=== PATIENT | male | born 1975 | race Caucasian/White ===

== ENCOUNTER 2021-02-17 08:45 | Outpatient (CLI) | payer OTHER, SELFPAY ==
--- NOTE | ~2021-02-17 | CT_ITS ---
EXAMINATION: CT abdomen pelvis wo/w con DATE: 02/17/2021 10:17 INDICATION: Gross hematuria TECHNIQUE: Computed tomography (CT) of the abdomen and pelvis was performed without intravenous contr ast. CT of the abdomen and pelvis was then performed with a total of 130 mL Omnipaque 350 intravenous contrast using a double-bolus technique for simultaneous opacification of the renal parenchyma and r enal collecting system. The dose-length product (DLP) was 1946.26 mGy-cm. Automated exposure control and iterative reconstruction technique were employed. COMPARISON: None FINDINGS: The lung bases are clear. The heart size is normal. The liver is diffusely low in attenuati on when compared with the spleen, consistent with hepatic steatosis. The spleen, pancreas, gallbladde r, and adrenal glands are normal. The kidneys are unremarkable. No suspicious renal or urothelial les ion is identified. There is a 13 mm stone in the urinary bladder. No pathologically enlarged abdomina l or pelvic lymph nodes are identified. There is no free intraperitoneal gas or evidence of bowel obs truction. There is mild lumbar spondylosis. Phleboliths are noted in the left pelvis. There are calci fications of the prostate. IMPRESSION: 1. 13 mm stone in the urinary bladder. Reviewed, dictated and finalized at location A.
--- NOTE | ~2021-02-17 | XR_ITS ---
XR abdomen/kub 1V 02/17/2021 09:33 Indication: Gross hematuria Procedure: KUB Comparison: No prior studies for comparison. Findings: There are low pelvic calcifications. Cannot exclude distal ureteral stone. There is a round circumscribed calcification in the pelvis, likely bladder stone measuring 2 cm. Bowel gas pattern no nobstructive. Impression: 1: Probable bladder stone measuring 2 cm. Possible distal left ureteral stone. Recommend correlation with CT. Reviewed, dictated and finalized at location B. Impression: 1: Probable bladder stone measuring 2 cm. Possible distal left ureteral stone. Recommend correlation with CT.
== END 2021-02-17 08:46 | disposition home or self-care (01) ==
PROVIDERS: PCP Internal Medicine; Visit Provider Nurse Practitioner Adult Health
DX: R31.0 Gross hematuria (principal); N21.0 Calculus in bladder
CPT/HCPCS: 74018; 74178; Q9967

== ENCOUNTER → 2021-02-22 01:24 | Outpatient (CLI) | payer OTHER, SELFPAY ==
[2021-02-22 17:12] LABS: SARS-CoV-2 RNA PCR Negative
== END ==
PROVIDERS: PCP Internal Medicine; Visit Provider Urology
DX: Z01.812 Encounter for preprocedural laboratory examination (principal); Z20.822 Contact with and (suspected) exposure to COVID-19
CPT/HCPCS: C9803; U0003; U0005

== ENCOUNTER 2021-02-24 01:40 | Day surgery (SDC) | payer OTHER, SELFPAY ==
[2021-02-21 16:18] VITALS: BMI 29.4
[2021-02-24] VITALS (7 sets, daily range): BP systolic 98–127; BP diastolic 63–82; PULSE 68–90; RESP 11–20; TEMP 36.2–36.4; O2SAT 97–99
--- NOTE | 2021-02-24 06:40 | WPDHPUPDATE1 ---
History and Physical Update Update Date/Time: 02/24/21 06:40 History and Physical has been reviewed, including an updated exam of the patient. There are NO changes in the patient's condition. Risks, benefits, and alternatives have been discussed and questions answered. Patient agrees to proceed with procedure.
[2021-02-24] MEDS: LACTATED RINGERS 1,000 ML 30 ML IV CONT ×2 (10:50→12:26)
--- NOTE | 2021-02-24 11:07 | WPDANESEPPF ---
Anes - Initial Pre Proc Eval Procedure: Operation Date: 02/24/21 13:00 Proposed Procedures p Cystoscopy, Bladder Stone Removal, - Gaetano Galicia MD s Holmium Laser Procedure - Gaetano Galicia MD Date/Time: 02/24/21 11:07 Surgeon: Gaetano Galicia MD Pre Op Diagnosis: Bladder Stone Patient Data Age: 45 Gender: M Height: 1.78 m Weight: 92.7 kg Last Vital Signs Temp 36.4 C 02/24/21 10:18 Pulse 90 02/24/21 10:18 Resp 16 02/24/21 10:18 BP 127/82 02/24/21 10:18 Pulse Ox 99 02/24/21 10:18 Allergies Allergy/AdvReac Type Severity Reaction Status Date / Time ciprofloxacin [From Cipro] Allergy Joint Pain Verified 02/21/21 15:59 levofloxacin [From Levaquin] Allergy Joint Pain Verified 02/21/21 16:00 Home Medications Medication Instructions Recorded Confirmed Type diazepam 5 mg tablet 5 mg PO QHS PRN 02/16/21 02/21/21 History pantoprazole 40 mg tablet,delayed 40 mg PO QAM 02/16/21 02/21/21 History release Patient hx anesthesia problems: none Family hx anesthesia problems: none PMFSH Surgical History Surgical History (Updated 02/24/21 @ 11:08 by Deuce Gloria MD) H/O sinus surgery History of appendectomy Hx of cystoscopy Family History Family History Father Hypertension Mother Cancer Depression Sibling Diabetes mellitus Grandparent Cancer Grandparent Cancer Diabetes mellitus Thyroid disorder Social History Social History Smoking status: Never smoker Tobacco type: cigars Alcohol intake: current Drinks per week: 7 Substance use: never Substance use type: does not use Living arrangements: with family Spiritual care concerns: No Anes - Eval Final PreProcedure Day of Procedure 02/24/21 11:07 Patient weight: overweight Heart: regular rate and rhythm Lungs: clear to auscultation Airway: Mallampati scale class 1 Neurological: alert and oriented Last oral intake: >/= 8 hours ASA classification: II Emergent: no Anesthetic plan: proceed Anesthesia type and monitoring: general GIVS and standard monitoring Informed Consent: The patient's anesthetic plan and its attendant risks and benefits were discussed with the patient/family/POA. Questions were solicited and answers provided to the satisfaction of the patient/family/POA.
[2021-02-24] MEDS: ceFAZolin 2 GM/D5W 50 ML 2 GM/50 ML BAG IVPB (11:35)
[2021-02-24] MEDS: LIDOCAINE HCL 2% GEL UROJET 10 ML PKG MUCOUS MEM (11:52)
[2021-02-24] MEDS: KETOROLAC 15 MG/ML VIAL (*BKC) IV PUSH (11:56)
--- NOTE | 2021-02-24 12:05 | P.OP_ITS ---
Procedure Note - Detailed Date of Procedure 02/24/21 Pre-op Diagnosis Bladder Stone Post-op Diagnosis other ( 1. Bladder stone 2. Fossa navicular stricture) Procedure Performed cystoscopy, urethral dilatation, laser lithotripsy and extraction bladder stone Surgeon Gaetano Galicia MD Clinical Appeals Reviewer none Anesthesia general Indications gross hematuria Findings 1. Fossa navicular stricture 2. 3 cm bladder calculus Description of Procedure patient is brought to the op suite where he has prepped draped in routine sterile fashion while in dorsal lithotomy position. This done after the uneventful induction of a general LMA anesthetic. I attempted to place a 21 F rigid cystoscope but met resistance in the fossa navicularis. I dilated the stricture from 16-26 F. I then placed the cystoscope and saw no additional strictures. There was no significant prostatic hyperplasia. Bladder mucosa shows some hyperemia where the stone rest but is otherwise unremarkable. He has yhis 2.5-3 cm somewhat flat stone which we fractured into tiny pieces and evacuated using a 1000 micron holmium laser fiber. The cystoscope was removed at this point he was taken recovery room having tolerated this Estimated Blood Loss 0 Drains No Packing No Pathology yes Complications No immediate complications Condition stable Disposition PACU
[2021-02-24] MEDS: fentaNYL CITRATE INJ (*CRX) 100 MCG/2 ML VIAL 25 MCG IV PUSH ×3 (12:24→12:50)
--- NOTE | 2021-02-24 12:53 | SUR.PHASEI ---
PT AWAKE AND ALERT. STATES MILD PAIN TO PENIS AT 2-3/10. STATES IT FEELS LIKE A UTI PT STATES HE IS READY TO SEE FAMILY
== END 2021-02-24 13:49 | disposition home or self-care (01) ==
PROVIDERS: PCP Internal Medicine; Visit Provider Urology
PROC: 0TCB8ZZ Extirpation of Matter from Bladder, Via Natural or Artificial Opening Endoscopic (ICD-10-PCS; CPT 52352; principal; 2021-02-24 13:00)
PROC: (CPT 52318; 2021-02-24 13:00)
DX: N21.0 Calculus in bladder (principal)
CPT/HCPCS: 52318; 82365; 88300; A9270; C9803; J0690; J1885; J2250; J3010; J7120; U0003; U0005

== ENCOUNTER 2021-03-14 13:30 | Outpatient (CLI) | payer OTHER, SELFPAY ==
--- NOTE | ~2021-03-14 | MR_ITS ---
EXAMINATION: MR brain IAC wo/w con EXAM DATE: 03/14/2021 15:12 INDICATION: H91.8X9 - Other specified hearing loss, unspecified ear. Tinnitus left ear. TECHNIQUE: Multi-sequential, multiplanar MR images of the brain, brainstem, internal auditory canals were obtained without contrast. Whole brain sagittal T1, axial diffusion, gradient echo (T2*), T1, T 2, FLAIR sequences obtained. High resolution coronal 3-D FIESTA, coronal T1 FSE, axial T1 FSPGR of t he internal auditory canals. Patient was then injected with 18 cc Multihance contrast intravenously. Postcontrast axial and coronal T1 weighted whole brain, axial and coronal high resolution T1 IAC seq uences obtained. There is no prior study for comparison. FINDINGS: No evidence of mastoid or middle ear opacification. The 7th/8th cranial nerve complexes a re symmetric, normal in course and caliber. No cerebellopontine angle masses. Posterior fossa unrem arkable. There are no areas of restricted diffusion to suggest acute infarction. There is no acute hemorrhage seen on the T2*, a hemosiderin sensitive sequence. No intraparenchymal brain mass. The ventricles a re normal in size. There are no extra-axial collections. Flow voids are seen in the cerebral arteri es on the T2-weighted sequences consistent with their expected patency. The orbits are unremarkable. Soft tissue is unremarkable. There are no areas of abnormal enhancement on the postcontrast image s. IMPRESSION: 1. Unremarkable brain MRI examination. Reviewed, dictated and finalized at location A.
[2021-03-14 14:54] LABS: Estimated Glomerular Filt Rate > 60
== END 2021-03-14 13:31 | disposition home or self-care (01) ==
PROVIDERS: PCP Internal Medicine; Visit Provider Otolaryngology
DX: H91.8X9 Other specified hearing loss, unspecified ear (principal)
CPT/HCPCS: 70553; A9577